=== PATIENT | male | born 1955 | race Caucasian/White ===

== ENCOUNTER → 2020-02-22 | Outpatient (CLI) | payer BC ==
[~2020-02-22] MED LIST: ACETAMINOPHEN500 M1 PO; MULTI VITAMIN1 EACH PO; OMEGA 3 1,0001 EACH PO; PRINIVIL10 MG PO
== END ==
LOC: LAB 12:08
PROVIDERS: ATTEND Student in an Organized Health Care Education/Training Program
DX: Z01.818 Encounter for other preprocedural examination (principal); Z11.59 Encounter for screening for other viral diseases